=== PATIENT | male | born 1980 | race Asian ===

== ENCOUNTER 2018-10-30 07:11 | Emergency (ER) | payer MEDICAID ==
[2018-10-30] MEDS ORDERED: LORazepam 1 MG Tab PO ONE (07:40)
--- NOTE | 2018-10-30 07:43 | EDM.PDOC ---
ED HPI GENERAL MEDICAL PROBLEM - General Chief Complaint: Lower Extremity Injury/Pain Stated Complaint: ALL OVER BODY PAIN Time Seen by Provider: 10/30/18 07:21 Source of Information: Reports: Patient History Limitations: Reports: No Limitations - History of Present Illness INITIAL COMMENTS - FREE TEXT/NARRATIVE: The patient presents with a flair of his gout and because he is in a manic phase. He has had trouble with his gout on and off since August. His left foot and left 1st MTP are being affected. He denies any injury. He has been trying RICE and an antiinflammatory. He also is in a manic phase. He is bipolar and this has been going on for about a week. He is currently not taking any medications. He feels some ativan may help. Onset: Gradual Duration: Week(s): Location: Reports: Lower Extremity, Left (Foot and 1st MTP) Quality: Reports: Sharp Severity: Moderate Improves with: Reports: Immobilization Worsens with: Reports: Movement Context: Denies: Trauma Associated Symptoms: Reports: No Other Symptoms Left Foot Pain Score (Numeric/FACES): 9 - Related Data Allergies Allergy/AdvReac Type Severity Reaction Status Date / Time No Known Allergies Allergy Verified 10/30/18 07:29 Home Meds: Home Meds Allopurinol [Zyloprim] 100 mg PO DAILY #20 tab 10/30/18 [Rx] LORazepam [Ativan] 1 mg PO Q8H PRN #10 tab 10/30/18 [Rx] predniSONE [Prednisone] 40 mg PO DAILY #10 tablet 10/30/18 [Rx] Past Medical History Psychiatric History: Reports: Bipolar Social & Family History - Tobacco Use Smoking Status *Q: Current Every Day Smoker Years of Tobacco use: 15 Packs/Tins Daily: 1 - Recreational Drug Use Recreational Drug Use: Yes Recreational Drug Type: Reports: Other (see below) Other Recreational Drug Type: pt uses CBD products Review of Systems - Review of Systems Review Of Systems: See Below Constitutional: Reports: No Symptoms Eyes: Reports: No Symptoms Ears: Reports: No Symptoms Nose: Reports: No Symptoms Mouth/Throat: Reports: No Symptoms Respiratory: Reports: No Symptoms Cardiovascular: Reports: No Symptoms GI/Abdominal: Reports: No Symptoms Genitourinary: Reports: No Symptoms Musculoskeletal: Reports: Other (Left foot and left 1st MTP pain) Neurological: Reports: No Symptoms ED EXAM, GENERAL - Physical Exam Exam: See Below Exam Limited By: No Limitations General Appearance: Alert, No Apparent Distress Ears: Normal External Exam Nose: Normal Inspection Head: Atraumatic, Normocephalic Neck: Normal Inspection Respiratory/Chest: No Respiratory Distress, Lungs Clear, Normal Breath Sounds Cardiovascular: Regular Rate, Rhythm, No Edema, No Murmur GI/Abdominal: Soft, Non-Tender, No Organomegaly, No Mass Extremities: Other (Pain upon palpation to the 1st MTP with mild edema) Course - Vital Signs Last Recorded V/S: Last Vital Signs Temp 98.0 F 10/30/18 07:25 Pulse 93 10/30/18 07:25 Resp 16 10/30/18 07:25 BP 129/99 H 10/30/18 07:25 Pulse Ox 99 10/30/18 07:25 - Orders/Labs/Meds Meds: Medications Discontinued Medications Generic Name Dose Route Start Last Admin Trade Name Freq PRN Reason Stop Dose Admin Lorazepam 1 mg 10/30/18 07:40 Ativan PO 10/30/18 07:41 ONETIME ONE - Re-Assessments/Exams Free Text/Narrative Re-Assessment/Exam: 10/30/18 07:48 I ordered some ativan here and I will give him a prescription and some prednisone and allopurinol. Departure - Departure Time of Disposition: 07:50 Disposition: Home, Self-Care 01 Condition: Good Clinical Impression: Manic bipolar I disorder Gout attack Qualifiers: Gout site: foot Gout etiology: other secondary cause Laterality: left Qualified Code(s): M10.472 - Other secondary gout, left ankle and foot - Discharge Information *PRESCRIPTION DRUG MONITORING PROGRAM REVIEWED*: No *COPY OF PRESCRIPTION DRUG MONITORING REPORT IN PATIENT HERMAN: No Prescriptions: Allopurinol [Zyloprim] 100 mg PO DAILY #20 tab LORazepam [Ativan] 1 mg PO Q8H PRN #10 tab PRN Reason: Anxiety predniSONE [Prednisone] 40 mg PO DAILY #10 tablet Referrals: PCP,None [Primary Care Provider] - Forms: ED Department Discharge Additional Instructions: Take the ativan as needed for anxiety and manic symptoms. Take the prednisone daily for 5 days and the allopurinol.
== END 2018-10-30 08:05 | disposition home or self-care (01) ==
LOC: EDBD 07:11 → JD.ED 07:11
DX: M10.472 Other secondary gout, left ankle and foot (principal); F31.9 Bipolar disorder, unspecified; F17.210 Nicotine dependence, cigarettes, uncomplicated; Z79.899 Other long term (current) drug therapy
CPT/HCPCS: 99283; A9270; 99284